=== PATIENT | male | born 1940 | race Caucasian/White ===

== ENCOUNTER 2017-09-10 11:57 | Inpatient (IN) | payer MEDICARE, OTHER ==
[~2017-09-10] VITALS: Ht 175.3 cm; Wt 90.5 kg
[~2017-09-10 11:57] MED LIST: AMIO200T2 PO; CYAN500 PO; DIGO0.25 PO; FINA5TAB41 PO; METO25TA6 PO; POTA20PA3 PO; TERA10CA4 PO
[2017-09-10] MEDS ORDERED: MORPHINE SULFATE 4 MG/1ML SYG ONE (12:34)
[2017-09-10] MEDS ORDERED: ONDANSETRON HCL MDV 20ML 2 MG/ML VIAL ONE (12:34)
[2017-09-10 12:47] LABS: CREATININE 1.4 mg/dL (0.5-1.5); POTASSIUM 4.5 mmol/L (3.5-5.1)
[2017-09-10 12:49] LABS: BASOPHILS % (AUTO) 1.2 % (0.0-5.0); EOSINOPHILS % (AUTO) 0.7 % (0.0-8.0); HEMATOCRIT 24.4 % (42-54); LYMPHOCYTES % (AUTO) 7.8 % (21.0-51.0); MEAN CORPUSCULAR HEMOGLOBIN 28.7 pg (27.0-33.0); MEAN CORPUSCULAR HGB CONC 34.4 g/dL (32.0-36.0); MEAN CORPUSCULAR VOLUME 83.3 fL (79-99); MONOCYTES % (AUTO) 9.3 % (3.0-13.0); PLATELET COUNT (AUTO) 174 K/uL (130-400); RED BLOOD CELL COUNT(AUTO) 2.93 MIL/uL (4.50-6.20); RED CELL DISTRIBUTION WIDTH 16.4 % (11.0-15.5); WHITE BLOOD COUNT (AUTO) 6.7 K/uL (4.8-10.8)
[2017-09-10 12:52] LABS: ALBUMIN 2.6 g/dL (3.5-5.0); BILIRUBIN,TOTAL 0.6 mg/dL (0.2-1.0); TOTAL PROTEIN, SERUM 6.5 g/dL (6.0-8.3)
[2017-09-10] MEDS ORDERED: VANCOMYCIN 1GM+NS 250ML 250 ML IV ONE (13:49)
[2017-09-10] MEDS ORDERED: HYDRALAZINE HCL 20 MG/ML VIAL IV PRN (14:00)
[2017-09-10] MEDS ORDERED: POTASSIUM CHLORIDE 20MEQ/100ML 100 ML IV PRN (14:00)
[2017-09-10] MEDS ORDERED: POTASSIUM CHLORIDE 10% ELIXIR 20 MEQ/15 ML UDCUP PO PRN (14:00)
[2017-09-10] MEDS ORDERED: MAG HYDROX/AL HYDROX/SIMETH ES 30 ML SUSP UDCUP PO PRN (14:00)
[2017-09-10] MEDS ORDERED: ACETAMINOPHEN 325 MG TAB PO PRN ×2 (14:00)
[2017-09-10] MEDS ORDERED: ONDANSETRON HCL 4 MG/2 ML VIAL IV PRN (14:00)
[2017-09-10] MEDS ORDERED: LIDOCAINE HCL-MPF 1% 2ML VIAL IVP PRN (14:00)
[2017-09-10] MEDS ORDERED: GUAIFENESIN-DM 200/20 MG 10 ML PO PRN (14:00)
[2017-09-10] MEDS ORDERED: NITROGLYCERIN 0.4 MG SL TAB SL PRN (14:00)
[2017-09-10 14:06] LABS: PARTIAL THROMBOPLASTIN TIME 61.9 SEC (26.3-35.5)
[2017-09-10 14:15] LABS: PROTHROMBIN TIME > 63.0 SEC (9.6-11.6)
[2017-09-10 14:16] LABS: INR 6.75 (0.85-1.15)
[2017-09-10 14:54] LABS: % IRON SATURATION 10.9 % (30-44); FERRITIN 258 ng/mL (30-400); IRON, SERUM 18 mcg/dL (65-175); TOTAL IRON BINDING CAPACITY 165 mcg/dL (250-450)
[2017-09-10] MEDS ORDERED: WARF-57 PO (19:15)
[2017-09-10] MEDS ORDERED: CALC-724 PO (19:15)
[2017-09-10] MEDS ORDERED: OMEG-116 PO (19:15)
[2017-09-10] MEDS ORDERED: ROSU5TAB PO (19:15)
[2017-09-10] MEDS ORDERED: METO25TA6 PO (19:15)
[2017-09-10] MEDS ORDERED: VITA100012 PO (19:15)
[2017-09-10] MEDS ORDERED: CYAN250010 PO (19:15)
[2017-09-10 20:00] VITALS: BP 133/66
[2017-09-10] MEDS: FAMOTIDINE 20MG TAB 20 MG TAB PO SCH (21:33)
[2017-09-10] MEDS: MORPHINE SULFATE 4 MG/1ML SYG IV PRN (21:38)
[2017-09-10] MEDS ORDERED: SODIUM CHLORIDE 0.9% 500ML 500 ML IV ONE (23:09)
[2017-09-10] MEDS ORDERED: PHYTONADIONE 10 MG/1 ML AMP SQ SCH (23:30)
[2017-09-10] MEDS ORDERED: PHYTONADIONE 10 MG/1 ML AMP ONE (23:42)
[2017-09-10 23:51] VITALS: BP 121/55
[2017-09-11 04:00] VITALS: BP 118/57
[2017-09-11 04:22] LABS: HEMATOCRIT 21.2 % (42-54); MEAN CORPUSCULAR HEMOGLOBIN 27.3 pg (27.0-33.0); MEAN CORPUSCULAR HGB CONC 33.2 g/dL (32.0-36.0); MEAN CORPUSCULAR VOLUME 82.2 fL (79-99); PLATELET COUNT (AUTO) 144 K/uL (130-400); RED BLOOD CELL COUNT(AUTO) 2.57 MIL/uL (4.50-6.20); RED CELL DISTRIBUTION WIDTH 16.3 % (11.0-15.5); WHITE BLOOD COUNT (AUTO) 6.8 K/uL (4.8-10.8)
[2017-09-11 04:52] LABS: INR 2.92 (0.85-1.15)
[2017-09-11 04:59] LABS: CREATININE 1.2 mg/dL (0.5-1.5); POTASSIUM 4.2 mmol/L (3.5-5.1)
[2017-09-11 08:02] VITALS: BP 131/68
[2017-09-11] MEDS ORDERED: FUROSEMIDE 10 MG/ML 2ML VIAL IV SCH (10:30)
[2017-09-11] MEDS ORDERED: COMPOUND IV MISC 1 EACH IVSOLN MISC PRN (10:45)
[2017-09-11 10:48] LABS: RETICULOCYTE % (AUTO) 1.66 % (0.42-2.23)
[2017-09-11] MEDS: FAMOTIDINE 20MG TAB 20 MG TAB PO SCH ×2 (11:01→22:41)
[2017-09-11] MEDS: ACETAMINOPHEN-CODEINE 300/30MG TAB PO PRN (11:04)
[2017-09-11] MEDS: DIGOXIN 250 MCG TABLET PO SCH (11:06)
[2017-09-11] MEDS: IRON SUCROSE COMPLEX 100 MG in SODIUM CHLORIDE 0.9% 50 ML IV SCH (11:06)
[2017-09-11] MEDS: MORPHINE SULFATE 2 MG/ML 1ML SYG IV PRN (11:11)
[2017-09-11 11:37] LABS: % IRON SATURATION 6.9 % (30-44); FERRITIN 249 ng/mL (30-400); IRON, SERUM 9 mcg/dL (65-175); TOTAL IRON BINDING CAPACITY 129 mcg/dL (250-450)
[2017-09-11 11:50] VITALS: BP 127/64
[2017-09-11 15:43] VITALS: BP 126/66
[2017-09-11] MEDS ORDERED: FUROSEMIDE 10 MG/ML 2ML VIAL ONE (16:37)
[2017-09-11 19:25] VITALS: BP 128/64
[2017-09-11] MEDS: TERAZOSIN HCL 5 MG CAPSULE PO SCH (22:42)
[2017-09-11] MEDS: FINASTERIDE 5 MG TABLET PO SCH (22:42)
[2017-09-11] MEDS: MORPHINE SULFATE 4 MG/1ML SYG IV PRN (22:43)
[2017-09-11 23:52] VITALS: BP 117/57
[2017-09-12 04:28] LABS: HEMATOCRIT 21.4 % (42-54); MEAN CORPUSCULAR HEMOGLOBIN 28.7 pg (27.0-33.0); MEAN CORPUSCULAR HGB CONC 35.7 g/dL (32.0-36.0); MEAN CORPUSCULAR VOLUME 80.4 fL (79-99); PLATELET COUNT (AUTO) 146 K/uL (130-400); RED BLOOD CELL COUNT(AUTO) 2.67 MIL/uL (4.50-6.20); RED CELL DISTRIBUTION WIDTH 16.7 % (11.0-15.5); WHITE BLOOD COUNT (AUTO) 6.6 K/uL (4.8-10.8)
[2017-09-12 04:30] VITALS: BP 123/61
[2017-09-12 04:35] LABS: INR 1.59 (0.85-1.15); PARTIAL THROMBOPLASTIN TIME 49.1 SEC (26.3-35.5); PROTHROMBIN TIME 16.5 SEC (9.6-11.6)
[2017-09-12 04:56] LABS: CREATININE 1.2 mg/dL (0.5-1.5)
[2017-09-12 08:18] VITALS: BP 116/61
[2017-09-12] MEDS: VITAMIN E 1000 UNIT PO SCH (09:00)
[2017-09-12] MEDS: CYANOCOBALAMIN (VITAMIN B-12) 1,000 MCG TABLET PO SCH (09:36)
[2017-09-12] MEDS: FAMOTIDINE 20MG TAB 20 MG TAB PO SCH ×2 (09:37→20:19)
[2017-09-12] MEDS: ATORVASTATIN CALCIUM 10 MG TABLET PO SCH (09:37)
[2017-09-12] MEDS: FISH OIL 1000 MG/CAP PO SCH (09:37)
[2017-09-12] MEDS: CALCIUM 600 + VITAMIN D 400 TABLET PO SCH (09:37)
[2017-09-12] MEDS: AMIODARONE HCL 200 MG TABLET PO SCH ×2 (09:37→20:20)
[2017-09-12] MEDS: METOPROLOL TARTRATE 25 MG TAB PO SCH (09:37)
[2017-09-12] MEDS: IRON SUCROSE COMPLEX 100 MG in SODIUM CHLORIDE 0.9% 50 ML IV SCH (09:43)
[2017-09-12] MEDS: MORPHINE SULFATE 2 MG/ML 1ML SYG IV PRN ×2 (09:45→20:18)
[2017-09-12 12:18] VITALS: BP 112/61
[2017-09-12 16:00] VITALS: BP 128/65
[2017-09-12] MEDS: DIGOXIN 250 MCG TABLET PO SCH (18:26)
[2017-09-12 19:46] VITALS: BP 130/63
[2017-09-12] MEDS: TERAZOSIN HCL 5 MG CAPSULE PO SCH (20:19)
[2017-09-12] MEDS: FINASTERIDE 5 MG TABLET PO SCH (20:20)
[2017-09-12] MEDS: LACTULOSE 20 GM/30 ML UDCUP PO PRN (20:29)
[2017-09-13] VITALS (7 sets, daily range): BP systolic 109–146; BP diastolic 64–78
[2017-09-13] MEDS: ACETAMINOPHEN-CODEINE 300/30MG TAB PO PRN ×2 (05:47→20:43)
[2017-09-13 05:54] LABS: HEMATOCRIT 24.7 % (42-54); MEAN CORPUSCULAR HEMOGLOBIN 26.9 pg (27.0-33.0); MEAN CORPUSCULAR HGB CONC 33.4 g/dL (32.0-36.0); MEAN CORPUSCULAR VOLUME 80.7 fL (79-99); PLATELET COUNT (AUTO) 176 K/uL (130-400); RED BLOOD CELL COUNT(AUTO) 3.06 MIL/uL (4.50-6.20); WHITE BLOOD COUNT (AUTO) 6.9 K/uL (4.8-10.8)
[2017-09-13 06:10] LABS: INR 1.17 (0.85-1.15); PARTIAL THROMBOPLASTIN TIME 40.1 SEC (26.3-35.5); PROTHROMBIN TIME 12.2 SEC (9.6-11.6)
[2017-09-13 06:13] LABS: POTASSIUM 3.7 mmol/L (3.5-5.1)
[2017-09-13] MEDS: VITAMIN E 1000 UNIT PO SCH (09:00)
[2017-09-13] MEDS: ATORVASTATIN CALCIUM 10 MG TABLET PO SCH (10:57)
[2017-09-13] MEDS: CYANOCOBALAMIN (VITAMIN B-12) 1,000 MCG TABLET PO SCH (10:57)
[2017-09-13] MEDS: METOPROLOL TARTRATE 25 MG TAB PO SCH (10:57)
[2017-09-13] MEDS: CALCIUM 600 + VITAMIN D 400 TABLET PO SCH (10:57)
[2017-09-13] MEDS: AMIODARONE HCL 200 MG TABLET PO SCH ×2 (10:58→20:43)
[2017-09-13] MEDS: FAMOTIDINE 20MG TAB 20 MG TAB PO SCH ×2 (10:58→20:43)
[2017-09-13] MEDS: DIGOXIN 250 MCG TABLET PO SCH (11:01)
[2017-09-13] MEDS: BALSAM PERU/CASTOR OIL 60 GM TUBE TP SCH (11:02)
[2017-09-13] MEDS: FISH OIL 1000 MG/CAP PO SCH (11:02)
[2017-09-13] MEDS: IRON SUCROSE COMPLEX 100 MG in SODIUM CHLORIDE 0.9% 50 ML IV SCH (11:03)
[2017-09-13] MEDS: MORPHINE SULFATE 2 MG/ML 1ML SYG IV PRN (11:14)
[2017-09-13] MEDS: FINASTERIDE 5 MG TABLET PO SCH (20:43)
[2017-09-13] MEDS: TERAZOSIN HCL 5 MG CAPSULE PO SCH (20:43)
[2017-09-14 04:39] VITALS: BP 126/72
[2017-09-14] MEDS: MORPHINE SULFATE 2 MG/ML 1ML SYG IV PRN (05:33)
[2017-09-14 06:23] LABS: HEMATOCRIT 23.7 % (42-54); MEAN CORPUSCULAR HEMOGLOBIN 28.1 pg (27.0-33.0); MEAN CORPUSCULAR HGB CONC 34.4 g/dL (32.0-36.0); MEAN CORPUSCULAR VOLUME 81.6 fL (79-99); PLATELET COUNT (AUTO) 191 K/uL (130-400); RED BLOOD CELL COUNT(AUTO) 2.91 MIL/uL (4.50-6.20); WHITE BLOOD COUNT (AUTO) 6.3 K/uL (4.8-10.8)
[2017-09-14 06:57] LABS: INR 1.13 (0.85-1.15); PARTIAL THROMBOPLASTIN TIME 37.2 SEC (26.3-35.5); PROTHROMBIN TIME 11.8 SEC (9.6-11.6)
[2017-09-14 07:00] VITALS: BP 141/68
[2017-09-14 07:01] LABS: POTASSIUM 3.6 mmol/L (3.5-5.1)
[2017-09-14] MEDS: VITAMIN E 1000 UNIT PO SCH (09:00)
[2017-09-14] MEDS: IRON SUCROSE COMPLEX 100 MG in SODIUM CHLORIDE 0.9% 50 ML IV SCH (09:31)
[2017-09-14] MEDS: AMIODARONE HCL 200 MG TABLET PO SCH ×2 (09:32→20:51)
[2017-09-14] MEDS: FISH OIL 1000 MG/CAP PO SCH (09:32)
[2017-09-14] MEDS: METOPROLOL TARTRATE 25 MG TAB PO SCH (09:32)
[2017-09-14] MEDS: ATORVASTATIN CALCIUM 10 MG TABLET PO SCH (09:32)
[2017-09-14] MEDS: CALCIUM 600 + VITAMIN D 400 TABLET PO SCH (09:32)
[2017-09-14] MEDS: FAMOTIDINE 20MG TAB 20 MG TAB PO SCH ×2 (09:32→20:51)
[2017-09-14] MEDS: CYANOCOBALAMIN (VITAMIN B-12) 1,000 MCG TABLET PO SCH (09:33)
[2017-09-14] MEDS: BALSAM PERU/CASTOR OIL 60 GM TUBE TP SCH (09:38)
[2017-09-14 11:00] VITALS: BP 134/72
[2017-09-14] MEDS: DIGOXIN 250 MCG TABLET PO SCH (11:37)
[2017-09-14] MEDS: ACETAMINOPHEN-CODEINE 300/30MG TAB PO PRN ×2 (11:37→18:16)
[2017-09-14] MEDS ORDERED: VANCOMYCIN PROTOCOL PER PHARMACY IV SCH (15:15)
[2017-09-14] MEDS ORDERED: COMPOUND IV REFRIGERATED 1 EACH IVSOLN MISC PRN (15:30)
[2017-09-14] MEDS: POTASSIUM CHLORIDE 20 MEQ ERTAB PO PRN ×2 (15:57→18:14)
[2017-09-14 16:00] VITALS: BP 120/60
[2017-09-14 20:00] VITALS: BP 140/70
[2017-09-14] MEDS: FINASTERIDE 5 MG TABLET PO SCH (20:51)
[2017-09-14] MEDS: VANCOMYCIN 1.25 GM in SODIUM CHLORIDE 0.9% 250 ML IV SCH (20:51)
[2017-09-14] MEDS: TERAZOSIN HCL 5 MG CAPSULE PO SCH (20:51)
[2017-09-14 23:33] VITALS: BP 131/64
[2017-09-15] MEDS: ACETAMINOPHEN-CODEINE 300/30MG TAB PO PRN ×3 (00:13→20:06)
[2017-09-15 04:00] VITALS: BP 129/66
[2017-09-15] MEDS: MORPHINE SULFATE 2 MG/ML 1ML SYG IV PRN (04:41)
[2017-09-15 08:19] VITALS: BP 137/66
[2017-09-15] MEDS: VITAMIN E 1000 UNIT PO SCH (09:00)
[2017-09-15] MEDS: VANCOMYCIN 1.25 GM in SODIUM CHLORIDE 0.9% 250 ML IV SCH ×2 (09:22→23:54)
[2017-09-15] MEDS: IRON SUCROSE COMPLEX 100 MG in SODIUM CHLORIDE 0.9% 50 ML IV SCH (09:22)
[2017-09-15] MEDS: FISH OIL 1000 MG/CAP PO SCH (09:23)
[2017-09-15] MEDS: BALSAM PERU/CASTOR OIL 60 GM TUBE TP SCH (09:23)
[2017-09-15] MEDS: AMIODARONE HCL 200 MG TABLET PO SCH ×2 (09:23→20:06)
[2017-09-15] MEDS: FAMOTIDINE 20MG TAB 20 MG TAB PO SCH ×2 (09:23→20:06)
[2017-09-15] MEDS: CALCIUM 600 + VITAMIN D 400 TABLET PO SCH (09:23)
[2017-09-15] MEDS: CYANOCOBALAMIN (VITAMIN B-12) 1,000 MCG TABLET PO SCH (09:23)
[2017-09-15] MEDS: METOPROLOL TARTRATE 25 MG TAB PO SCH (09:23)
[2017-09-15] MEDS: ATORVASTATIN CALCIUM 10 MG TABLET PO SCH (09:23)
[2017-09-15 12:45] VITALS: BP 128/67
[2017-09-15] MEDS: DIGOXIN 250 MCG TABLET PO SCH (13:48)
[2017-09-15 17:20] VITALS: BP 138/72
[2017-09-15 19:59] VITALS: BP 135/69
[2017-09-15] MEDS: FINASTERIDE 5 MG TABLET PO SCH (20:06)
[2017-09-15] MEDS: TERAZOSIN HCL 5 MG CAPSULE PO SCH (20:06)
[2017-09-16] VITALS (23 sets, daily range): BP systolic 106–150; BP diastolic 50–82
[2017-09-16 04:44] LABS: MEAN CORPUSCULAR HEMOGLOBIN 29.2 pg (27.0-33.0); MEAN CORPUSCULAR HGB CONC 35.7 g/dL (32.0-36.0); PLATELET COUNT (AUTO) 195 K/uL (130-400); RED BLOOD CELL COUNT(AUTO) 2.81 MIL/uL (4.50-6.20); RED CELL DISTRIBUTION WIDTH 15.9 % (11.0-15.5); WHITE BLOOD COUNT (AUTO) 5.7 K/uL (4.8-10.8)
[2017-09-16] MEDS: ACETAMINOPHEN-CODEINE 300/30MG TAB PO PRN (05:58)
[2017-09-16] MEDS ORDERED: LACTATED RINGERS 1000ML 1,000 ML IV ONE (06:28)
[2017-09-16] MEDS ORDERED: LIDOCAINE PF 2% 5ML ABBOJECT ONE (07:07)
[2017-09-16] MEDS ORDERED: DEXAMETHASONE SOD PHOSPHATE 10MG/ML 1ML VIAL ONE ×2 (07:07→08:33)
[2017-09-16] MEDS ORDERED: GLYCOPYRROLATE 0.2 MG/ML 5 ML VIAL ONE (07:07)
[2017-09-16] MEDS ORDERED: PROPOFOL 10 MG/ML 20ML VIAL IV ONE (07:08)
[2017-09-16] MEDS ORDERED: DURAMORPH PF1 MG/ML 10ML AMP IV ONE (07:08)
[2017-09-16] MEDS ORDERED: MIDAZOLAM HCL 1 MG/ML 2ML VIAL ONE (07:08)
[2017-09-16] MEDS ORDERED: BUPIVACAINE/EPI/PF 0.25% 30ML VIAL IJ ONE (07:08)
[2017-09-16] MEDS ORDERED: FENTANYL CITRATE PF 50 MCG/1 ML 2ML VIAL ONE ×2 (07:08→10:01)
[2017-09-16] MEDS ORDERED: BACITRACIN 50,000 UNIT VIAL ONE ×2 (07:09→09:29)
[2017-09-16] MEDS ORDERED: THROMBIN-JMI 20000 UNIT KIT TP ONE (07:09)
[2017-09-16] MEDS ORDERED: EPHEDRINE SULFATE 50 MG/ML AMPULE ONE (08:01)
[2017-09-16] MEDS ORDERED: PHENYLEPHRINE HCL 10 MG/ML 1ML VIAL IV ONE (08:32)
[2017-09-16] MEDS ORDERED: METOCLOPRAMIDE 10 MG/2 ML VIAL ONE (08:33)
[2017-09-16] MEDS ORDERED: SUCCINYLCHOLINE CHLORIDE 20 MG/ML 10 ML VIAL ONE (08:33)
[2017-09-16] MEDS ORDERED: ROCURONIUM BROMIDE 10MG/1ML 5ML VL ONE (08:33)
[2017-09-16] MEDS ORDERED: NEOSTIGMINE METHYLSULFATE 1MG/ML IV ONE (08:33)
[2017-09-16] MEDS ORDERED: LIDOCAINE HCL 4% LTA SOL 4 ML VIAL ONE (08:34)
[2017-09-16] MEDS ORDERED: SODIUM CHLORIDE 0.9% 10 ML VIAL ONE (08:34)
[2017-09-16] MEDS: VITAMIN E 1000 UNIT PO SCH (09:00)
[2017-09-16] MEDS: VANCOMYCIN 1.25 GM in SODIUM CHLORIDE 0.9% 250 ML IV SCH ×2 (09:00→23:24)
[2017-09-16] MEDS: BALSAM PERU/CASTOR OIL 60 GM TUBE TP SCH (09:00)
[2017-09-16] MEDS ORDERED: GENTAMICIN SULFATE 80 MG/2 ML VIAL ONE (09:29)
[2017-09-16] MEDS ORDERED: CEFAZOLIN SODIUM 1 GM VIAL ONE (09:29)
[2017-09-16] MEDS ORDERED: LACTATED RINGERS 1000ML 1,000 ML IV SCH (10:04)
[2017-09-16] MEDS ORDERED: SODIUM CHLORIDE 0.9% 10 ML VIAL IVP PRN (10:15)
[2017-09-16] MEDS ORDERED: PROMETHAZINE HCL 25 MG/ML 1ML AMPULE IM PRN (10:15)
[2017-09-16] MEDS ORDERED: MEPERIDINE-PF 25 MG/ML SYG ONE ×2 (10:29→10:53)
[2017-09-16] MEDS: DEXAMETHASONE SOD PHOSPHATE 4 MG/ML 1ML VIAL IVP SCH ×3 (14:33→23:16)
[2017-09-16] MEDS: DIGOXIN 250 MCG TABLET PO SCH (14:34)
[2017-09-16] MEDS: CALCIUM 600 + VITAMIN D 400 TABLET PO SCH (14:34)
[2017-09-16] MEDS: FAMOTIDINE 20MG TAB 20 MG TAB PO SCH ×2 (14:34→23:16)
[2017-09-16] MEDS: HYDROCODONE/ACETAMINOPHEN 5/325 MG TAB PO PRN (14:35)
[2017-09-16] MEDS: ATORVASTATIN CALCIUM 10 MG TABLET PO SCH (14:35)
[2017-09-16] MEDS: CYANOCOBALAMIN (VITAMIN B-12) 1,000 MCG TABLET PO SCH (14:35)
[2017-09-16] MEDS: AMIODARONE HCL 200 MG TABLET PO SCH ×2 (14:36→23:16)
[2017-09-16] MEDS: FISH OIL 1000 MG/CAP PO SCH (14:36)
[2017-09-16] MEDS: METOPROLOL TARTRATE 25 MG TAB PO SCH (14:36)
[2017-09-16] MEDS: IRON SUCROSE COMPLEX 100 MG in SODIUM CHLORIDE 0.9% 50 ML IV SCH (14:39)
[2017-09-16] MEDS: TERAZOSIN HCL 5 MG CAPSULE PO SCH (23:16)
[2017-09-16] MEDS: FINASTERIDE 5 MG TABLET PO SCH (23:16)
[2017-09-17 03:54] VITALS: BP 132/76
[2017-09-17 03:55] LABS: HEMATOCRIT 24.3 % (42-54); MEAN CORPUSCULAR HEMOGLOBIN 27.1 pg (27.0-33.0); MEAN CORPUSCULAR HGB CONC 33.1 g/dL (32.0-36.0); MEAN CORPUSCULAR VOLUME 81.8 fL (79-99); PLATELET COUNT (AUTO) 186 K/uL (130-400); RED BLOOD CELL COUNT(AUTO) 2.97 MIL/uL (4.50-6.20); RED CELL DISTRIBUTION WIDTH 16.4 % (11.0-15.5); WHITE BLOOD COUNT (AUTO) 8.2 K/uL (4.8-10.8)
[2017-09-17 04:14] LABS: CREATININE 1.1 mg/dL (0.5-1.5); POTASSIUM 4.4 mmol/L (3.5-5.1)
[2017-09-17] MEDS: DEXAMETHASONE SOD PHOSPHATE 4 MG/ML 1ML VIAL IVP SCH (06:00)
[2017-09-17 07:55] VITALS: BP 124/63
[2017-09-17] MEDS: VITAMIN E 1000 UNIT PO SCH (09:00)
[2017-09-17] MEDS: BALSAM PERU/CASTOR OIL 60 GM TUBE TP SCH (09:00)
[2017-09-17] MEDS: VANCOMYCIN 1.25 GM in SODIUM CHLORIDE 0.9% 250 ML IV SCH ×2 (09:29→21:17)
[2017-09-17] MEDS: AMIODARONE HCL 200 MG TABLET PO SCH ×2 (09:30→21:16)
[2017-09-17] MEDS: CALCIUM 600 + VITAMIN D 400 TABLET PO SCH (09:30)
[2017-09-17] MEDS: CYANOCOBALAMIN (VITAMIN B-12) 1,000 MCG TABLET PO SCH (09:30)
[2017-09-17] MEDS: FAMOTIDINE 20MG TAB 20 MG TAB PO SCH ×2 (09:30→21:16)
[2017-09-17] MEDS: ATORVASTATIN CALCIUM 10 MG TABLET PO SCH (09:31)
[2017-09-17] MEDS: FISH OIL 1000 MG/CAP PO SCH (09:31)
[2017-09-17] MEDS: METOPROLOL TARTRATE 25 MG TAB PO SCH (09:31)
[2017-09-17] MEDS: HYDROCODONE/ACETAMINOPHEN 5/325 MG TAB PO PRN ×2 (09:40→17:45)
[2017-09-17] MEDS: IRON SUCROSE COMPLEX 100 MG in SODIUM CHLORIDE 0.9% 50 ML IV SCH (09:55)
[2017-09-17] MEDS: LACTULOSE 20 GM/30 ML UDCUP PO PRN ×2 (09:55→17:45)
[2017-09-17 11:00] VITALS: BP 107/50
[2017-09-17] MEDS: DIGOXIN 250 MCG TABLET PO SCH (14:16)
[2017-09-17 16:00] VITALS: BP 115/59
[2017-09-17] MEDS: WARFARIN SODIUM 5 MG TAB PO SCH (17:53)
[2017-09-17] MEDS: MORPHINE SULFATE 2 MG/ML 1ML SYG IVP PRN (18:17)
[2017-09-17 19:49] VITALS: BP 125/64
[2017-09-17] MEDS: TERAZOSIN HCL 5 MG CAPSULE PO SCH (21:16)
[2017-09-17] MEDS: FINASTERIDE 5 MG TABLET PO SCH (21:16)
[2017-09-18] VITALS (7 sets, daily range): BP systolic 107–130; BP diastolic 61–67
[2017-09-18 05:12] LABS: INR 1.09 (0.85-1.15); PARTIAL THROMBOPLASTIN TIME 32.4 SEC (26.3-35.5); PROTHROMBIN TIME 11.4 SEC (9.6-11.6)
[2017-09-18] MEDS: ACETAMINOPHEN-CODEINE 300/30MG TAB PO PRN ×3 (05:35→18:36)
[2017-09-18] MEDS: VITAMIN E 1000 UNIT PO SCH (09:00)
[2017-09-18] MEDS: VANCOMYCIN 1.25 GM in SODIUM CHLORIDE 0.9% 250 ML IV SCH ×2 (09:50→20:17)
[2017-09-18] MEDS: FISH OIL 1000 MG/CAP PO SCH (09:50)
[2017-09-18] MEDS: FAMOTIDINE 20MG TAB 20 MG TAB PO SCH ×2 (09:50→20:16)
[2017-09-18] MEDS: CALCIUM 600 + VITAMIN D 400 TABLET PO SCH (09:50)
[2017-09-18] MEDS: IRON SUCROSE COMPLEX 100 MG in SODIUM CHLORIDE 0.9% 50 ML IV SCH (09:50)
[2017-09-18] MEDS: AMIODARONE HCL 200 MG TABLET PO SCH ×2 (09:50→20:16)
[2017-09-18] MEDS: CYANOCOBALAMIN (VITAMIN B-12) 1,000 MCG TABLET PO SCH (09:51)
[2017-09-18] MEDS: ATORVASTATIN CALCIUM 10 MG TABLET PO SCH (09:51)
[2017-09-18] MEDS: METOPROLOL TARTRATE 25 MG TAB PO SCH (09:51)
[2017-09-18] MEDS: BALSAM PERU/CASTOR OIL 60 GM TUBE TP SCH (10:46)
[2017-09-18] MEDS: DIGOXIN 250 MCG TABLET PO SCH (12:12)
[2017-09-18] MEDS: WARFARIN SODIUM 5 MG TAB PO SCH (17:52)
[2017-09-18] MEDS: FINASTERIDE 5 MG TABLET PO SCH (20:16)
[2017-09-18] MEDS: TERAZOSIN HCL 5 MG CAPSULE PO SCH (20:16)
[2017-09-19 03:30] VITALS: BP 110/65
[2017-09-19 04:39] LABS: INR 1.14 (0.85-1.15); PARTIAL THROMBOPLASTIN TIME 34.7 SEC (26.3-35.5); PROTHROMBIN TIME 11.9 SEC (9.6-11.6)
[2017-09-19 07:00] VITALS: BP 117/64
[2017-09-19] MEDS: ACETAMINOPHEN-CODEINE 300/30MG TAB PO PRN ×2 (07:49→17:10)
[2017-09-19] MEDS ORDERED: KETOROLAC TROMETHAMINE 15MG/ML IV PRN (09:00)
[2017-09-19] MEDS: VITAMIN E 1000 UNIT PO SCH (09:00)
[2017-09-19] MEDS: ATORVASTATIN CALCIUM 10 MG TABLET PO SCH (10:07)
[2017-09-19] MEDS: FAMOTIDINE 20MG TAB 20 MG TAB PO SCH ×2 (10:07→20:47)
[2017-09-19] MEDS: CYANOCOBALAMIN (VITAMIN B-12) 1,000 MCG TABLET PO SCH (10:08)
[2017-09-19] MEDS: METOPROLOL TARTRATE 25 MG TAB PO SCH (10:08)
[2017-09-19] MEDS: CALCIUM 600 + VITAMIN D 400 TABLET PO SCH (10:08)
[2017-09-19] MEDS: IRON SUCROSE COMPLEX 100 MG in SODIUM CHLORIDE 0.9% 50 ML IV SCH (10:08)
[2017-09-19] MEDS: FISH OIL 1000 MG/CAP PO SCH (10:08)
[2017-09-19] MEDS: AMIODARONE HCL 200 MG TABLET PO SCH ×2 (10:08→20:47)
[2017-09-19] MEDS: BALSAM PERU/CASTOR OIL 60 GM TUBE TP SCH (10:10)
[2017-09-19 11:00] VITALS: BP 113/58
[2017-09-19] MEDS: DIGOXIN 250 MCG TABLET PO SCH (11:49)
[2017-09-19 16:00] VITALS: BP 120/65
[2017-09-19] MEDS: WARFARIN SODIUM 5 MG TAB PO SCH (16:57)
[2017-09-19 20:00] VITALS: BP 103/55
[2017-09-19] MEDS: TERAZOSIN HCL 5 MG CAPSULE PO SCH (20:47)
[2017-09-19] MEDS: FINASTERIDE 5 MG TABLET PO SCH (20:47)
[2017-09-20] VITALS: BP 110/56
[2017-09-20] MEDS: ACETAMINOPHEN-CODEINE 300/30MG TAB PO PRN ×3 (00:04→16:19)
[2017-09-20 04:00] VITALS: BP 112/60
[2017-09-20 05:44] LABS: INR 1.14 (0.85-1.15); PARTIAL THROMBOPLASTIN TIME 32.9 SEC (26.3-35.5); PROTHROMBIN TIME 11.9 SEC (9.6-11.6)
[2017-09-20 05:47] LABS: DIGOXIN 1.6 ng/mL (0.50-2.00); POTASSIUM 3.9 mmol/L (3.5-5.1)
[2017-09-20 07:00] VITALS: BP 125/69
[2017-09-20] MEDS: VITAMIN E 1000 UNIT PO SCH (09:00)
[2017-09-20] MEDS: IRON SUCROSE COMPLEX 100 MG in SODIUM CHLORIDE 0.9% 50 ML IV SCH (09:01)
[2017-09-20] MEDS: CALCIUM 600 + VITAMIN D 400 TABLET PO SCH (09:02)
[2017-09-20] MEDS: CYANOCOBALAMIN (VITAMIN B-12) 1,000 MCG TABLET PO SCH (09:02)
[2017-09-20] MEDS: FISH OIL 1000 MG/CAP PO SCH (09:02)
[2017-09-20] MEDS: ATORVASTATIN CALCIUM 10 MG TABLET PO SCH (09:02)
[2017-09-20] MEDS: FAMOTIDINE 20MG TAB 20 MG TAB PO SCH ×2 (09:02→21:36)
[2017-09-20] MEDS: METOPROLOL TARTRATE 25 MG TAB PO SCH (09:04)
[2017-09-20] MEDS: AMIODARONE HCL 200 MG TABLET PO SCH ×2 (09:04→21:36)
[2017-09-20 12:00] VITALS: BP 118/65
[2017-09-20] MEDS: DIGOXIN 250 MCG TABLET PO SCH (12:07)
[2017-09-20] MEDS: LACTULOSE 20 GM/30 ML UDCUP PO PRN ×2 (12:07→21:42)
[2017-09-20 16:00] VITALS: BP 130/75
[2017-09-20] MEDS: WARFARIN SODIUM 5 MG TAB PO SCH (16:17)
[2017-09-20] MEDS: BALSAM PERU/CASTOR OIL 60 GM TUBE TP SCH ×2 (16:20→17:50)
[2017-09-20 20:00] VITALS: BP 126/68
[2017-09-20] MEDS: VANCOMYCIN 1.25 GM in SODIUM CHLORIDE 0.9% 250 ML IV SCH (21:00)
[2017-09-20] MEDS: TERAZOSIN HCL 5 MG CAPSULE PO SCH (21:35)
[2017-09-20] MEDS: FINASTERIDE 5 MG TABLET PO SCH (21:36)
[2017-09-21] VITALS (7 sets, daily range): BP systolic 106–134; BP diastolic 60–72
[2017-09-21] MEDS: ACETAMINOPHEN-CODEINE 300/30MG TAB PO PRN (00:03)
[2017-09-21] MEDS: VITAMIN E 1000 UNIT PO SCH (09:00)
[2017-09-21] MEDS ORDERED: VANCOMYCIN 1.5 GM in SODIUM CHLORIDE 0.9% 250 ML IV SCH (09:19)
[2017-09-21] MEDS ORDERED: MAGNESIUM HYDROXIDE 30 ML/UDCUP PO PRN (09:30)
[2017-09-21] MEDS: MORPHINE SULFATE 2 MG/ML 1ML SYG IVP PRN ×2 (11:01→13:46)
[2017-09-21] MEDS: POLYETHYLENE GLYCOL 3350 17 GM POWD.PACK PO SCH (11:04)
[2017-09-21] MEDS: FISH OIL 1000 MG/CAP PO SCH (11:05)
[2017-09-21] MEDS: CALCIUM 600 + VITAMIN D 400 TABLET PO SCH (11:05)
[2017-09-21] MEDS: METOPROLOL TARTRATE 25 MG TAB PO SCH (11:06)
[2017-09-21] MEDS: FAMOTIDINE 20MG TAB 20 MG TAB PO SCH ×2 (11:06→21:06)
[2017-09-21] MEDS: CYANOCOBALAMIN (VITAMIN B-12) 1,000 MCG TABLET PO SCH (11:06)
[2017-09-21] MEDS: ATORVASTATIN CALCIUM 10 MG TABLET PO SCH (11:06)
[2017-09-21] MEDS: BALSAM PERU/CASTOR OIL 60 GM TUBE TP SCH (11:08)
[2017-09-21] MEDS: AMIODARONE HCL 200 MG TABLET PO SCH ×2 (11:09→21:06)
[2017-09-21] MEDS: IRON SUCROSE COMPLEX 100 MG in SODIUM CHLORIDE 0.9% 50 ML IV SCH (11:10)
[2017-09-21] MEDS: HYDROCODONE/ACETAMINOPHEN 5/325 MG TAB PO PRN ×2 (13:11→17:51)
[2017-09-21] MEDS: DIGOXIN 250 MCG TABLET PO SCH (13:15)
[2017-09-21] MEDS: WARFARIN SODIUM 5 MG TAB PO SCH (17:49)
[2017-09-21] MEDS: TERAZOSIN HCL 5 MG CAPSULE PO SCH (21:06)
[2017-09-21] MEDS: FINASTERIDE 5 MG TABLET PO SCH (21:06)
[2017-09-21] MEDS: VANCOMYCIN 0.75 GM in SODIUM CHLORIDE 0.9% 250 ML IV SCH (21:09)
[2017-09-22] MEDS: HYDROCODONE/ACETAMINOPHEN 5/325 MG TAB PO PRN (01:08)
[2017-09-22 03:58] VITALS: BP 108/62
[2017-09-22 04:24] LABS: HEMATOCRIT 23.6 % (42-54); MEAN CORPUSCULAR HEMOGLOBIN 29.3 pg (27.0-33.0); MEAN CORPUSCULAR HGB CONC 35.1 g/dL (32.0-36.0); MEAN CORPUSCULAR VOLUME 83.3 fL (79-99); PLATELET COUNT (AUTO) 133 K/uL (130-400); RED BLOOD CELL COUNT(AUTO) 2.83 MIL/uL (4.50-6.20); RED CELL DISTRIBUTION WIDTH 18.9 % (11.0-15.5); WHITE BLOOD COUNT (AUTO) 5.7 K/uL (4.8-10.8)
[2017-09-22 04:33] LABS: CREATININE 0.9 mg/dL (0.5-1.5); POTASSIUM 3.7 mmol/L (3.5-5.1)
[2017-09-22 05:12] LABS: INR 1.21 (0.85-1.15); PARTIAL THROMBOPLASTIN TIME 32.4 SEC (26.3-35.5); PROTHROMBIN TIME 12.7 SEC (9.6-11.6)
[2017-09-22] MEDS: VANCOMYCIN 0.75 GM in SODIUM CHLORIDE 0.9% 250 ML IV SCH ×2 (06:06→12:55)
[2017-09-22 07:24] VITALS: BP 118/60
[2017-09-22] MEDS: BALSAM PERU/CASTOR OIL 60 GM TUBE TP SCH (09:00)
[2017-09-22] MEDS: VITAMIN E 1000 UNIT PO SCH (09:00)
[2017-09-22] MEDS: IRON SUCROSE COMPLEX 100 MG in SODIUM CHLORIDE 0.9% 50 ML IV SCH (10:04)
[2017-09-22] MEDS: METOPROLOL TARTRATE 25 MG TAB PO SCH (10:04)
[2017-09-22] MEDS: POLYETHYLENE GLYCOL 3350 17 GM POWD.PACK PO SCH (10:04)
[2017-09-22] MEDS: FAMOTIDINE 20MG TAB 20 MG TAB PO SCH (10:05)
[2017-09-22] MEDS: ATORVASTATIN CALCIUM 10 MG TABLET PO SCH (10:05)
[2017-09-22] MEDS: CYANOCOBALAMIN (VITAMIN B-12) 1,000 MCG TABLET PO SCH (10:05)
[2017-09-22] MEDS: FISH OIL 1000 MG/CAP PO SCH (10:05)
[2017-09-22] MEDS: AMIODARONE HCL 200 MG TABLET PO SCH (10:05)
[2017-09-22] MEDS: CALCIUM 600 + VITAMIN D 400 TABLET PO SCH (10:05)
[2017-09-22] MEDS: ACETAMINOPHEN-CODEINE 300/30MG TAB PO PRN ×2 (10:19→16:34)
[2017-09-22 11:12] VITALS: BP 126/69
[2017-09-22] MEDS ORDERED: ONDANSETRON HCL MDV 20ML 2 MG/ML VIAL IV PRN (12:10)
[2017-09-22] MEDS: DIGOXIN 250 MCG TABLET PO SCH (12:54)
[2017-09-22 15:15] VITALS: BP 125/68
[2017-09-22] MEDS: WARFARIN SODIUM 5 MG TAB PO SCH (16:34)
== END 2017-09-22 17:10 | DRG 519 ==
LOC: EDH 11:57 → EDHIP 13:58 → 3CH 18:20
PROVIDERS: ADMIT Internal Medicine; ATTEND Internal Medicine
PROC: 30233L1 Transfusion of Nonautologous Fresh Plasma into Peripheral Vein, Percutaneous Approach (ICD-10-PCS; 2017-09-11)
PROC: 30233N1 Transfusion of Nonautologous Red Blood Cells into Peripheral Vein, Percutaneous Approach (ICD-10-PCS; 2017-09-11)
PROC: 30233K1 Transfusion of Nonautologous Frozen Plasma into Peripheral Vein, Percutaneous Approach (ICD-10-PCS; 2017-09-11)
PROC: 02HV33Z Insertion of Infusion Device into Superior Vena Cava, Percutaneous Approach (ICD-10-PCS; 2017-09-16)
PROC: 0QB00ZZ Excision of Lumbar Vertebra, Open Approach (ICD-10-PCS; principal; 2017-09-16 07:30)
PROC: 009U0ZX Drainage of Spinal Canal, Open Approach, Diagnostic (ICD-10-PCS; 2017-09-16 07:30)
PROC: B01B1ZZ Fluoroscopy of Spinal Cord using Low Osmolar Contrast (ICD-10-PCS; 2017-09-16 07:30)
PROC: 4A11X4G Monitoring of Peripheral Nervous Electrical Activity, Intraoperative, External Approach (ICD-10-PCS; 2017-09-16 07:30)
DX: M46.46 Discitis, unspecified, lumbar region (principal); M46.26 Osteomyelitis of vertebra, lumbar region; D68.69 Other thrombophilia; E11.22 Type 2 diabetes mellitus with diabetic chronic kidney disease; R78.81 Bacteremia; I42.9 Cardiomyopathy, unspecified; I13.0 Hypertensive heart and chronic kidney disease with heart failure and stage 1 through stage 4 chronic kidney disease, or unspecified chronic kidney disease; I50.9 Heart failure, unspecified; B95.7 Other staphylococcus as the cause of diseases classified elsewhere; I48.2 Chronic atrial fibrillation; E78.5 Hyperlipidemia, unspecified; D64.9 Anemia, unspecified; E66.9 Obesity, unspecified; N18.9 Chronic kidney disease, unspecified; I12.9 Hypertensive chronic kidney disease with stage 1 through stage 4 chronic kidney disease, or unspecified chronic kidney disease; N40.0 Benign prostatic hyperplasia without lower urinary tract symptoms; M48.061 Spinal stenosis, lumbar region without neurogenic claudication; K59.00 Constipation, unspecified; D50.9 Iron deficiency anemia, unspecified; G89.29 Other chronic pain; I25.10 Atherosclerotic heart disease of native coronary artery without angina pectoris; I35.2 Nonrheumatic aortic (valve) stenosis with insufficiency; I35.0 Nonrheumatic aortic (valve) stenosis; I48.0 Paroxysmal atrial fibrillation; I45.10 Unspecified right bundle-branch block; I49.9 Cardiac arrhythmia, unspecified; R26.2 Difficulty in walking, not elsewhere classified; R70.0 Elevated erythrocyte sedimentation rate; Z79.01 Long term (current) use of anticoagulants; Z95.810 Presence of automatic (implantable) cardiac defibrillator; Z74.01 Bed confinement status; Z98.42 Cataract extraction status, left eye; Z98.41 Cataract extraction status, right eye
CPT/HCPCS: 36415; 36430; 71045; 72131; 76000; 80048; 80053; 80162; 80202; 82607; 82728; 82746; 83880; 85025; 85027; 85610; 85651; 85730; 86850; 86900; 86901; 86922; 86927; 87040; 87070; 87071; 87076; 87186; 87205; 93306; 97039; A4344; C1894; J0330; J0690; J1100; J1580; J1756; J1885; J1940; J2001; J2175; J2250; J2270; J2274; J2370; J2704; J2710; J2765; J3010; J3370; J3430; J3490; J7030; J7040; J7120; P9016; P9017